=== PATIENT | female | born 1990 | race Two or more races ===

== ENCOUNTER 2016-09-19 17:38 | Emergency (ER) | payer OTHER ==
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
[2016-09-19] MEDS ORDERED: DIAZEPAM 5 MG TABLET PO ONE (18:36)
[2016-09-19 18:37] VITALS: BP 151/100
== END 2016-09-19 19:20 | disposition home or self-care (01) ==
LOC: ER 17:38
DX: S43.402A Unspecified sprain of left shoulder joint, initial encounter (principal); V49.40XA Driver injured in collision with unspecified motor vehicles in traffic accident, initial encounter
CPT/HCPCS: 99283